=== PATIENT | male | born 1965 | race Caucasian/White ===

== ENCOUNTER → 2018-11-16 16:05 | Outpatient (CLI) | payer SELFPAY ==
--- NOTE | 2018-11-16 | MASS_PTH ---
PATIENT: TRUONG US LOC: [facility] U#:[id number] AGE/SX: 59/M ROOM: RE11/16/[address]: Dr. Carlos Cho MD : 1965 BED: DIS: SPEC #: [id number] RECD: 11/16/18 15:32 STATUS: SAMRA DESIREE #: [id number] JOVANA: 11/16/18 00:[address]: Carlos Cho DEPT: SURGICAL PATHOLOGY RECD BY: Mohinder Manzano ENTERED: 11/17/18 12:16 SP TYPE: Mass OTHR DR: ELVIRA Tissues: Neck, NOS Procedures: Surgery Specimen Level III HEADER OPERATION: Excision neck mass PRE-OP DIAGNOSIS: Neck mass TISSUE SUBMITTED: Neck mass MICROSCOPIC DIAGNOSIS Neck mass, excision: Mature adipose tissue, consistent with lipoma. DARCI:keira 11/20/18 MICROSCOPIC DESCRIPTION Slides are reviewed. GROSS DESCRIPTION Received in fixative is one container labeled with the patient's name and designated neck mass. The specimen consists of a piece of yellow adipose tissue measuring 3 x 2.5 x 2 cm. The external surface is inked. Sections reveal yellow adipose cut surfaces without areas of hemorrhage, necrosis or cystic degeneration. Discharge Door Operator sections are submitted in two cassettes. / SJ:keira 11/17/18 TC:1 CPT: 12072
== END ==
PROVIDERS: Referring Provider Otolaryngology; Visit Provider Otolaryngology
DX: R22.1 Localized swelling, mass and lump, neck (principal)
CPT/HCPCS: 88304; 88305